=== PATIENT | female | born 1970 | race Hispanic/Latino ===

== ENCOUNTER 2019-05-28 19:07 | Emergency (ER) | payer OTHER ==
[2019-05-28] MEDS ORDERED: MORPHINE SULFATE 4 MG/1ML SYG ONE (20:11)
[2019-05-28] MEDS ORDERED: ONDANSETRON ODT 4 MG TAB ONE (20:11)
== END 2019-05-28 20:38 | disposition home or self-care (01) ==
LOC: EDH 19:07
DX: M54.41 Lumbago with sciatica, right side (principal); Z98.890 Other specified postprocedural states
CPT/HCPCS: 96372; 99283; J2270

== ENCOUNTER 2019-09-21 03:31 | Emergency (ER) | payer OTHER ==
[2019-09-21] MEDS ORDERED: ORPHENADRINE CITRATE 30 MG/ML ML ONE (04:18)
== END 2019-09-21 04:43 | disposition home or self-care (01) ==
LOC: EDH 03:31
DX: M54.5 Low back pain (principal)
CPT/HCPCS: 96372; 99283; J2360

== ENCOUNTER → 2019-09-24 | Outpatient (CLI) | payer OTHER ==
[~2019-09-24] MED LIST: LIDOCAINE 1%-EPI 1:100,000 20 ML VIAL IJ ONE
[2019-09-24 10:50] LABS: INR 0.94 (0.85-1.15); PARTIAL THROMBOPLASTIN TIME 24.1 SEC (26.3-35.5); PROTHROMBIN TIME 9.9 SEC (9.6-11.6)
--- NOTE | 2019-09-24 10:50 | NUR ---
U/S GUIDED BIOPSY OF RIGHT AXILLA LYMPH NODE. NOT DONE ULTRASOUND OF THE RIGHT AXILLA PERFORMED BY PAMELA DOTSON. DR. SIMMONS VIEWED IMAGES AND PERFORMED ULTRASOUND AT THE PATIENT'S BEDSIDE. NOTED TO HAVE NORMAL LYMPH NODES OF THE RIGHT AXILLA. DR. SIMMONS INFORMED PATIENT OF THE RESULTS. PATIENT DISCHARGED HOME TO FOLLOW UP WITH ORDERING DR. WAGGONER. PT AMBULATORY STABLE, AAO X3 WITH NO C/O PAIN.
== END | disposition home or self-care (01) ==
LOC: RAH 09:09
PROVIDERS: ATTEND Family Medicine
DX: R59.1 Generalized enlarged lymph nodes (principal)
CPT/HCPCS: 36415; 76882; 85610; 85730; J3490